=== PATIENT | male | born 1955 | race Caucasian/White ===

== ENCOUNTER 2025-03-03 13:36 | Inpatient (IN) | payer OTHER, SELFPAY ==
[2025-03-03] VITALS (20 sets, daily range): BP systolic 121–155; BP diastolic 62–74; BMI 31.5
--- NOTE | 2025-03-03 08:29 | ED.GENMED ---
History of Present Illness
General
Chief Complaint: Cough
Source: patient
Time Seen by Provider: 03/03/25 08:18
History of Present Illness
History of Present Illness:
70-year-old male with past medical history of hypertension and hyperlipidemia presenting to the emergency department for evaluation of increased fatigue over the last few weeks accompanied with a dry cough and mild exertional dyspnea. Patient
states he is currently visiting family in the area, lives in [place], here visiting for a celebration of life of his twin brothers. Patient does note that this has been causing him some increased stress due to his twin brother's passing. Patient
states that he usually walks 3 miles per day but notes he is having a hard time even going about a half a block without feeling short of breath. He does note that he is currently in the process of being worked up for thrombocytopenia noting that
this was found about 2 years ago and has remained stable but his primary care doctor wanted him to see a instrument processing tech to further evaluate. Social history was noted for 2 glasses of wine a few times per week, patient notes that he has been told he
has a little bit of a fatty liver. Denies any cigarette or tobacco use. No known family history of bleeding or clotting disorders. Also denies any fevers, night sweats or abnormal weight loss.
Past History
Past History
ED Past Medical History: HTN and Hypercholesterolemia
ED Past Surgical History: Appendectomy
Social History
Tobacco: Non-smoker
Alcohol: Occasional
Drug: None
Personal:
Living: with family
Review of Systems
Review of Systems
All Other Systems: ROS reviewed and negative except as documented in HPI and ROS
Phy Exam
Physical Exam
Physical Exam:
GENERAL: Alert , in no apparent distress
EYE: conjunctiva clear
NECK: Supple
ENT: o/p clr, mmm.
CARDIAC: Tachycardic rate, normal rhythm
LUNGS: Clear breath sounds bilaterally, no acute respiratory distress, no wheezes/rales/rhonchi
ABDOMEN: Soft, nontender, nondistended
NEUROLOGICAL: Alert and oriented
SKIN: Warm and dry, skin intact.
MUSCULOSKELETAL: well perfused. No edema
PSYCH: Normal and appropriate interaction.
Scores
Heart Score for Chest Pain Patients
STEMI patient?: Not applicable
Withdrawal Assessment of Alcohol
Withdrawal Assessment Completed?: Not applicable
Course
Orders/Labs/Results
Orders:
Orders
03/03/25 08:27
Electrocardiogram (*1) Urgent
Reason for Study: Shortness of Breath
CT Chest PE Study Urgent
Comment:
Reason For Exam: MANRIQUE, tachy, SOB
EKG- Treatment ONCE
03/03/25 08:49
Complete Blood Count/With Diff Urgent
Comprehensive Metabolic Panel Urgent
Magnesium Urgent
NT-proBNP Urgent
Troponin I Urgent
03/03/25 09:14
Blood Bank Products [* Blood Bank Products] Urgent
Blood Bank Products: *Packed RBC Leuko(PRBC's)
Quantity: 2
Transfuse Today: Yes
Reason: Anemia
03/03/25 09:38
Type+Screen Urgent
03/03/25 09:59
ABO2 Routine
BBK Wristband Number:
Associate notified that ABO2 has been ordered: [id number]
Date: 03/03/25
Time: 09:44
Whiskey Filterer ID: [id number]
Abnormal Lab Results
03/03/25 03/03/25
08:49 09:38
RBC 2.45 L 10^6/uL
(4.70-6.10)
Hgb 5.9 L* g/dL
(13.0-18.0)
Hct 20.4 L* %
(39.0-52.0)
MCH 24.1 L pg
(27.0-31.0)
MCHC 28.9 L g/dL
(33.0-37.0)
RDW 20.3 H %
(11.5-14.5)
MPV 11.1 H fL
(7.4-10.4)
Absolute Monos (auto) 0.7 H 10^3/uL
(0.1-0.6)
Monocytes % 13.9 H %
(1.7-9.3)
Chloride 114 H mmol/L
(98-107)
Creatinine 0.6 L mg/dL
(0.7-1.3)
Glucose 102 H mg/dl
(70-99)
Albumin 3.4 L g/dl
(3.5-5.0)
Crossmatch IS Only See Detail
03/03/25 08:49
03/03/25 08:49
Vital Signs
Initial and Last Documented VS:
Initial Vital Signs
Temp Pulse Resp BP Pulse Ox
98.0 F 107 16 146/72 98
03/03/25 07:29 03/03/25 07:29 03/03/25 07:29 03/03/25 07:29 03/03/25 07:29
Last Documented Vital Signs
Temp Pulse Resp BP Pulse Ox
97.6 F 90 16 134/64 97
03/03/25 12:10 03/03/25 12:15 03/03/25 12:10 03/03/25 12:10 03/03/25 12:15
MDM/Problems Addressed
Differential Diagnosis Includes:
- Valvular Dysfunction
- Cardiomyopathy
- ACS
- PE
- Anemia
- Asthma/COPD
- Pneumonia
- Viral Syndrome
- Malignancy
MDM/Problems Addressed:
70-year-old male presenting to the ER for evaluation of nonproductive cough for the last few weeks, exertional dyspnea and generalized fatigue. History of thrombocytopenia of unclear etiology, was referred to hematology but is yet to see them.
Lives in [place] but currently visiting here after his twin brother's recent passing and does admit to this causing him some increased stress. Noted to be mildly tachycardic here but otherwise hemodynamically stable. Will obtain CT scan of the
chest, labs and EKG. Disposition pending, may need further evaluation with cardiology for echocardiogram and other testing pending ER workup especially given his gradually worsening symptoms and exertional dyspnea
*Radiology
Radiology exam reviewed: radiology read reviewed
*Pulse Oximetry
SaO2: 98
Oxygen Mode of Delivery: Room air
Patient hypoxic: no
*Supervisor Component Assembler Interpretation
Rate: tachycardiac
Heart Rate: 105
Rhythm: sinus
*Critical Care Note
Total Time (30-74mins, 75-104mins- exclusive of procedures): 30
comment:
Critical care statement: A total of 30 minutes of critical care time was provided for this patient. This includes management of unstable vital signs, evaluation of the patient at bedside, reviewing the patient's pertinent medical records, discussion
with consultants, review of old EKGs and review of pertinent medical records. This time with separate from time utilized to perform the aforementioned documented procedures
Comment
Comment:
On patient's labs he has a hemoglobin of 5.9, hematocrit of 20.4, platelets within normal limits at 132. Patient notes no known history of anemia. He has never needed blood transfusion in the past. I did perform a digital rectal exam which showed
light brown stool that is heme-negative. Patient was consented for blood. 2 units packed red blood cells ordered. Will continue to proceed with CTA of the chest given his cough although I do suspect the exertional dyspnea is more likely related
to the anemia. Discussed with patient potential if not likely need for admission for further evaluation.
Patient Management
Discussion with other providers: Hospitalist
Escalation/DeEscalation of care consider admission/obs:
CTA is negative for any pulmonary embolism or masses. Liver cirrhosis noted, unclear as to if this is related to patient's anemia. Given the no clear etiology for patient's anemia as well as likely need for further transfusion will admit for
further evaluation and consultation with specialists as needed. Hospitalist team accepts for continued evaluation and treatment.
ED Attending Note
-
Portions of this chart may have been created with voice recognition software.� Occasional wrong word or��sound alike� substitutions may have occurred due to the inherent limitations of voice recognition software.
Discharge Plan
Departure
Patient Disposition: Admit
Date of Disposition: 03/03/25
Time of Disposition: 10:54
Presentation/result/management discussed w/ accepting MD/DO: Hospitalist
Discharge Problem:
Anemia, Cirrhosis
Prescriptions:
No Action
atorvastatin 20 mg Tablet
20 mg PO HS
eszopiclone 1 mg Tablet
1 mg PO HSPRN PRN (Reason: SLEEP)
Descovy 200-25 mg Tablet
1 tab PO QPM
amlodipine 5 mg tablet
5 mg PO QPM
Theragen Tablet
1 tab PO DAILY
aspirin 81 mg Tablet,Delayed Release (Dr/Ec)
81 mg PO DAILY
Advil PM 200-38 mg Tablet
2 cap PO HSPRN PRN (Reason: SLEEP)
Referrals:
NONE,* [Family Provider, Internal Medicine]
Interventions
Interventions:
*Risk Screen - Suicide Last Done: 03/03/25 07:29
*General Assessment Last Done: 03/03/25 09:22
*Neglect/Abuse Screening Last Done: 03/03/25 07:29
*ED- Fall Risk Assessment Last Done: 03/03/25 09:22
*ED COVID-19 Vaccine History Last Done: 03/03/25 09:22
ED- Pulmonary Assessment Last Done: 03/03/25 09:22
Discharge Date and Time
Print Language: MACANESE
[2025-03-03 09:00] LABS: Hematocrit 20.4 % (39.0-52.0); Hemoglobin 5.9 g/dL (13.0-18.0); Mean Corp Hgb Conc. 28.9 g/dL (33.0-37.0); Mean Corpuscular Volume 83.3 fL (80.0-94.0); Nucleated Red Blood Cells % 0 % (-); Platelet Count 132 10^3/uL (130-400); Red Cell Dist. Width 20.3 % (11.5-14.5)
[2025-03-03 09:09] LABS: ALT (SGPT) 29 U/L (0-50); AST (SGOT) 36 U/L (17-59); Albumin 3.4 g/dl (3.5-5.0); Alkaline Phosphatase 109 U/L (38-126); Blood Urea Nitrogen 9 mg/dl (9-20); Calcium 8.5 mg/dl (8.4-10.2); Carbon Dioxide 22 mmol/L (22-30); Chloride 114 mmol/L (98-107); Estimated Creatinine Clearance 120 ml/min; Glucose 102 mg/dl (70-99); Magnesium 2.0 mg/dl (1.6-2.3); Potassium 3.9 mmol/L (3.5-5.1); Sodium 144 mmol/L (135-145); Total Protein 6.6 g/dl (6.3-8.2); eGFR > 60.00
[2025-03-03 09:20] LABS: Troponin I < 0.012 ng/ml
[2025-03-03 09:36] LABS: Normal RBC Morphology No
[2025-03-03 09:39] LABS: Anisocytosis Slight; Hypochromasia 2+; Polychromasia 1+; Target Cells Slight
--- NOTE | 2025-03-03 12:33 | HPS.HSE ---
Addendum entered and electronically signed by Sarahi Malhotra MD 03/07/25 15:08:
Outpatient home medicines list
Atorvastatin 20 mg p.o. at bedtime
Descovy 200-25 mg p.o. at bedtime
Eszopiclone 1 mg p.o. at bedtime as needed sleep
Aspirin 81 mg p.o. daily
Advil PM 200-38 mg 2 capsules p.o. at bedtime as needed sleep
Theragran multivitamin 1 tablet p.o. daily
Amlodipine 5 mg p.o. every afternoon
Original Note:
Family Physician
-
Family Physician: * NONE
Chief Complaint
-
Cough
History of Present Illness
70-year-old male presented with fatigue, exertional dyspnea and dry cough. He lives in [place] and visiting family in the area usually walks 3 miles a day but has had a hard time now because of shortness of breath. He came in for left celebration
for the 2 twin brothers had he had lost. He admits that he had black stools 2 weeks ago. Denies any dizziness chest pain or abdominal pain. Patient takes Advil PM 3-4 times a week. He also drinks 2 glasses of wine 3-4 times a week
Medical History
Past Medical History
Past Medical History: Reports Other
Additional Past Medical History:
Low platelets for which he needs workup as outpatient, hypertension, hyperlipidemia insomnia
Past Surgical History: Reports Other
Additional Past Surgical History:
Colonoscopy and appendectomy
Social History
Tobacco: Non-smoker
Alcohol: Other (1 to 2 glasses of wine 3-4 nights a week)
Drug: None
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
Family History
Family History: Cancer (Brother of pancreatic cancer other brother of colon cancer another brother with coronary disease)
Allergies / Home Medications
Allergies reflects when Allergies were last updated in [facility].
Home Medications with original date entered in [facility]
Allergy/Medication List:
Part of this note was created using voice recognition system. Occasional wrong word or��sound alike� substitutions may have inadvertently occurred due to the inherent limitations of voice recognition software. If noted kindly bring it to my
attention for correction.
Review of Systems
-
A 12 point ROS was completed and negative except as noted: Yes
Respiratory: Reports Trouble Breathing
Cardiac: Denies Chest Pain, Palpitations or Syncope
Abdomen/GI: Reports Black Stools; Denies Abdominal Pain or Bloody Stools
Physical Exam
Vital Signs
Vital Signs
Temp Pulse Resp BP Pulse Ox
97.6 F 90 16 134/64 97
03/03/25 12:10 03/03/25 12:15 03/03/25 12:10 03/03/25 12:10 03/03/25 12:15
Physical Exam
General: Comfortable and Conversant
Respiratory: Clear
Cardiac: S1/S2 and Regular Rhythm
GI: Soft, Non Tender and Normal Bowel Sounds
Neuro: Nonfocal/grossly intact
Psych: Intact Judgment/Insight
Laboratory Results
-
03/03/25 08:49
03/03/25 08:49
Laboratory Results
Total Bilirubin 1.2 mg/dl (0.2-1.3) 03/03/25 08:49
AST 36 U/L (17-59) 03/03/25 08:49
ALT 29 U/L (0-50) 03/03/25 08:49
Alkaline Phosphatase 109 U/L (38-126) 03/03/25 08:49
Troponin I < 0.012 ng/ml 03/03/25 08:49
Impression/Plan
-
IMPRESSION/PLAN:
CT-no PE. Low lung volumes. Bibasilar atelectatic changes. Trace left pleural effusion. Cirrhosis. Small amount of ascites. Splenomegaly. Large heterogeneous left lobe of thyroid mass. Thoracic spine related to ankylosing spondylitis or DISH
EKG-sinus rhythm with PACs
# Symptomatic anemia with a hemoglobin of 5.9
Type and screen and transfuse 2 units of blood
Stop NSAIDs
Drinks alcohol and cirrhosis noted on CT which patient was not aware about.
Get ultrasound of the abdomen.
GI eval for endoscopy to rule out peptic ulcer disease/varices
PPI drip and octreotide
# Cirrhosis-on CT. Check ultrasound abdomen
# Hyperlipidemia-continue statin
# Hypertension-hold amlodipine
# Large heterogeneous left lobe thyroid mass-USS . check TSH
# Abnormal thoracic spine ankylosing spondylitis/DISH-outpatient follow-up
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
# DVT prophylaxis-SCDs
# CODE STATUS- Full Code
Pt says he doesn't have HIV and takes Descovy for Prep
Part of this note was created using voice recognition system. Occasional wrong word or��sound alike� substitutions may have inadvertently occurred due to the inherent limitations of voice recognition software. If noted kindly bring it to my
attention for correction.
time spent over 75 min
--- NOTE | 2025-03-03 13:48 | EDRN ---
this RN called the receiving unit and notified them that paper report was going to be tubed up
--- NOTE | 2025-03-03 14:43 | CON.GI ---
Addendum entered and electronically signed by Rashad Pastor MD 03/03/25 17:13:
I saw and examined the patient.
The SR SOLUTIONS CONSULTANT or PA's note was reviewed and I agree with the note.
Comment: 70yo male visiting from [place] presents with SOB and cough, found to be profoundly anemic Hgb 5.9. He recall passing black loose stools couple weeks ago for a couple days. Denies abd pain, n/v. CT chest done in ER incidentally found
irregular hepatic capsular contour c/w cirrhosis and splenomegaly. He drinks couple glasses of wine daily but did drink more heavily in his past, up to 6 glasses on heavier nights. He was told he was thrombocytopenic recently and referred to
Hematology. Also told he had fatty liver and elevated LFTs. In ER LFTs normal. He takes Advil PM to sleep several days a week. No prior EGD. He had colonoscopy last year that was normal. His brother passed from CRC.
REC:
Transfuse to bring Hgb up to safe range for EGD tomorrow. DDx includes PUD with NSAID use, varices with cirrhosis on chest CT, portal gastropathy
Check US abdomen to confirm findings of cirrhosis
Keep on BID protonix, and octreotide gtt for now
Check Hep B/C serologies to rule out as etiologies for cirrhosis
Pt agrees to stop EtOH completely and reports he had done this for weeks at a time in the past
I told him he needs to establish care with a roller billet mill/music department chair when he returns to [place]. He is in process of switching to a farmworker turkey farm physician and will do so upon return
Original Note:
Consultation
-
Date/Time Consultation Requested: 03/03/25 1300
Date/Time Consultation Performed: 03/03/25 1440
Requesting Provider: Dr. Malhotra
Performing Provider: Dr. King/JORGE ALBERTO Childress
Reason for Consultation: anemia, recent melena, cirrhosis on imaging
Medical History
Chief Complaint / HPI
Chief Complaint: cough
History of Present Illness:
70-year-old male with past medical history of hypertension and hyperlipidemia presents to the emergency room with fatigue over the last couple weeks associated with cough and dyspnea on exertion. The patient states that he is felt very fatigued
especially over the past 2 weeks. He was found to have a hemoglobin of 5.9, platelets 132. CT of chest showed cirrhosis on imaging. We are asked to evaluate for the same. The patient states that he lives in [place] full-time. He is up-to-date
on colonoscopy as his brother from colon cancer. He had his last colonoscopy 1 year ago. He states that this was 'normal'. He did have his yearly physical with routine labs performed the first week in January. He states that his primary
told him that his platelets were 'a little low'. However they were the same numbers for the past 2 years and asked him to see hematology. He is going to see hematology next month. He does drink approximately 2 to 3 glasses of wine a day. In the
past he would drink more at least 4 glasses of wine daily he does not have a prior history of cirrhosis that he was aware of. He is currently here visiting family. He does state that approximately 10 days ago he had black stool for 4 days. He
states that he was having a little bit of fatigue prior to this however became more pronounced. He does take aspirin 81 mg daily. He has been taking 'Advil PM' 2 pills at least 3-4 times a week for the past 9 months for sleep. He denies any
fevers, chills, nausea, vomiting, hematochezia, dysphagia or odynophagia. No early satiety or unintentional weight loss. At the time of his melena he was not having any indigestion heartburn or abdominal discomfort. He states that his bowel
movements went back to normal. In the emergency room he had light brown stool that was OB negative. Patient's medications were reviewed. Patient is on Descovy for PrEP.
Past Medical History
Past Medical History: Other (Hypertension, hyperlipidemia)
Past Surgical History: Appendectomy
Social History
Tobacco: Non-Smoker
Alcohol: Daily (2 to 4 glasses of wine daily)
Drug: None
Personal: Single
Living: Alone
Family History
Family History: Other (Brother with history of colon cancer, denies any family history of IBD)
Allergies / Home Medications
Allergy/AdvReac Type Severity Reaction Status Date / Time
KRISTOPHER Inhibitors Allergy Intermediate Swelling Verified 03/03/25 07:31
�Medication �Instructions �Recorded
amlodipine 5 mg tablet 5 mg PO QPM Blood Pressure 03/03/25
aspirin 81 mg tablet,delayed 81 mg PO DAILY 03/03/25
release
atorvastatin 20 mg tablet 20 mg PO HS High Cholesterol 03/03/25
emtricitabine 200 mg-tenofovir 1 tab PO QPM 03/03/25
alafenamide fumarate 25 mg tablet
(Descovy)
eszopiclone 1 mg tablet 1 mg PO HSPRN PRN SLEEP 03/03/25
ibuprofen-diphenhydramine citrate 2 cap PO HSPRN PRN SLEEP 03/03/25
200 mg-38 mg tablet (Advil PM)
therapeutic multivitamin 1 tab PO DAILY 03/03/25
Review of Systems
-
All other systems: A 12 pt ROS was Negative except as stated above in HPI
Vital Signs
Temp Pulse Resp BP Pulse Ox
98.1 F 108 18 144/69 96
03/03/25 14:23 03/03/25 14:23 03/03/25 14:23 03/03/25 14:23 03/03/25 14:23
Physical Exam
Exam
General: No Apparent Distress
HEENT: Anicteric
Respiratory: Clear
Cardiac: Regular Rhythm
GI: Soft, Non Tender, Non Distended and Normal Bowel Sounds
Rectal: Hem Negative (Light brown OB negative stool per ER)
Musculoskeletal: No Edema
Skin: Warm and Dry
Neuro: AO x 3
Psych: Calm
Results
WBC 4.8 10^3/uL (4.8-10.8) 03/03/25 08:49
Hgb 5.9 g/dL (13.0-18.0) L* 03/03/25 08:49
Hct 20.4 % (39.0-52.0) L* 03/03/25 08:49
MCV 83.3 fL (80.0-94.0) 03/03/25 08:49
Plt Count 132 10^3/uL (130-400) 03/03/25 08:49
Absolute Neuts (auto) 2.7 10^3/uL (1.4-6.5) 03/03/25 08:49
Sodium 144 mmol/L (135-145) 03/03/25 08:49
Potassium 3.9 mmol/L (3.5-5.1) 03/03/25 08:49
Chloride 114 mmol/L (98-107) H 03/03/25 08:49
Carbon Dioxide 22 mmol/L (22-30) 03/03/25 08:49
BUN 9 mg/dl (9-20) 03/03/25 08:49
Creatinine 0.6 mg/dL (0.7-1.3) L 03/03/25 08:49
Calcium 8.5 mg/dl (8.4-10.2) 03/03/25 08:49
Total Bilirubin 1.2 mg/dl (0.2-1.3) 03/03/25 08:49
AST 36 U/L (17-59) 03/03/25 08:49
ALT 29 U/L (0-50) 03/03/25 08:49
Alkaline Phosphatase 109 U/L (38-126) 03/03/25 08:49
Diagnostic Image Results:
CT chest/PE study:
IMPRESSION:
1. Examination limited as above. No central pulmonary embolus.
2. Low lung volumes. Bibasilar atelectatic changes. Trace left pleural effusion.
3. Cirrhosis. Small amount of ascites. Splenomegaly which may be related to portal hypertension.
4. Large heterogeneous left lobe thyroid mass as above, incompletely imaged on this exam.
5. Thoracic spine findings related to ankylosing spondylitis or diffuse idiopathic skeletal hyperostosis.
Prior GI Procedures:
EGD: Never had
Colonoscopy: Per patient had colonoscopy 1 year ago in [place]. States it was 'normal'. Patient had this earlier as brother was diagnosed with colon cancer.
Colonoscopy 06/22/2017: - One 3 mm polyp in the rectum. Biopsied.
- Non-bleeding external hemorrhoids.
- The examined portion of the ileum was normal. Repeat colonoscopy 10 years.
Assessment / Plan
-
70-year-old male with past medical history of hypertension and hyperlipidemia presents to the emergency room with fatigue over the last couple weeks associated with cough and dyspnea on exertion. The patient states that he is felt very fatigued
especially over the past 2 weeks. He was found to have a hemoglobin of 5.9, platelets 132. CT of chest showed cirrhosis on imaging. We are asked to evaluate for the same. Patient was given 1 unit of packed red blood cells with hemoglobin coming
up to 6.2. Taking aspirin 81 mg daily. Advil PM (2 pills) 3 times a week for the past 9 months. Recent episodes of melena approximately 10 days ago that lasted 4 days. Currently stool light brown OB negative. Patient reports that his platelets
were the only thing that were abnormal on his recent labs the first week in January patient currently visiting family. He is from [place]. Not set to return to [place] until March [address].
Impression:
Symptomatic anemia hemoglobin 5.9
New diagnosis of cirrhosis
Recent episodes of melena approximately 10 days ago
Chronic use of NSAIDs (aspirin 81 mg daily as well as Advil 400 mg 3 times a week for 9 months)
Chronic alcohol, at least 2 glasses of wine daily
Thyroid mass
Plan:
- Transfuse as ordered to keep hemoglobin greater than 7
- Ultrasound abdomen ordered
- Continue pantoprazole, can change to 40 mg IV twice daily
- Patient placed on octreotide empirically
- Clear liquid diet, n.p.o. after midnight for possible EGD as long as labs stable.
- Further recommendations to be forthcoming
-
-
Thank you for consultation and allowing me to participate in the patient's care. Please call the iron launder operator GI physician during the after hours with any questions or concerns.
[2025-03-03 14:56] LABS: Hematocrit 20.5 % (39.0-52.0); Hemoglobin 6.2 g/dL (13.0-18.0)
[2025-03-03] MEDS: PROTONIX 100 IV (15:17)
--- NOTE | 2025-03-03 15:40 | PTCARENOTE ---
pt presented from ED via stretcher. pt is AAO*3, Vss, room air. denies any pain at this time. pt with 2nd unit of blood infusing at this time. pt is oriented to the room, call stanton within the reach. plan of care ongoing.
[2025-03-03] MEDS: SANDOSTATIN 500.6 MCG IV (16:16)
[2025-03-03] MEDS: THIAMINE INJECTION 200 MG IV (16:46)
[2025-03-03 17:11] LABS: Vitamin B12 860 pg/ml (239-931)
[2025-03-03] MEDS: D5/0.45%NACL 1000 IV (17:31)
[2025-03-03] MEDS: NSS (PRESERVATIVE FREE) 10 ML IV (19:52)
[2025-03-03] MEDS: PROTONIX IV 40 MG IV (19:52)
[2025-03-03] MEDS: LIPITOR 20 MG PO (20:04)
[2025-03-03 20:43] LABS: Hematocrit 21.9 % (39.0-52.0); Hemoglobin 6.8 g/dL (13.0-18.0)
[2025-03-04] VITALS (9 sets, daily range): BP systolic 21–141; BP diastolic 65–82; PULSE 95–100
[2025-03-04 03:01] LABS: Hematocrit 25.3 % (39.0-52.0); Hemoglobin 8.2 g/dL (13.0-18.0)
[2025-03-04] MEDS: SANDOSTATIN 500.6 MCG IV (04:50)
[2025-03-04 08:10] LABS: ALT (SGPT) 31 U/L (0-50); AST (SGOT) 54 U/L (17-59); Albumin 3.3 g/dl (3.5-5.0); Alkaline Phosphatase 100 U/L (38-126); Blood Urea Nitrogen 7 mg/dl (9-20); Calcium 7.8 mg/dl (8.4-10.2); Carbon Dioxide 18 mmol/L (22-30); Chloride 114 mmol/L (98-107); Estimated Creatinine Clearance > 125 ml/min; Glucose 137 mg/dl (70-99); Potassium 4.6 mmol/L (3.5-5.1); Sodium 139 mmol/L (135-145); Total Protein 6.4 g/dl (6.3-8.2); eGFR > 60.00
[2025-03-04 08:14] LABS: INR 1.50; PT 18.4 Sec (11.4-14.6)
[2025-03-04] MEDS: NSS (PRESERVATIVE FREE) 10 ML IV (09:10)
[2025-03-04] MEDS: PROTONIX IV 40 MG IV (09:10)
[2025-03-04] MEDS: THIAMINE INJECTION 200 MG IV (09:10)
[2025-03-04] MEDS: THERAGRAN 1 TABLET PO (09:11)
[2025-03-04 09:44] LABS: Vitamin D, 25-OH*** 13.2 ng/mL (30-80)
[2025-03-04 10:14] LABS: Hematocrit 26.0 % (39.0-52.0); Hemoglobin 8.3 g/dL (13.0-18.0); Mean Corp Hgb Conc. 31.9 g/dL (33.0-37.0); Mean Corpuscular Volume 80.0 fL (80.0-94.0); Platelet Count 117 10^3/uL (130-400); Red Cell Dist. Width 20.8 % (11.5-14.5)
[2025-03-04 10:18] LABS: Hepatitis B Surface Antigen Negative (Negative)
[2025-03-04 10:37] LABS: Hepatitis C Antibody Negative (Negative)
--- NOTE | 2025-03-04 12:57 | W.PN.GI.CBS2 ---
Today's Communication / Plan
-
PPI bid x 8 weeks
Assessment / Plan
-
EGD:
erosive gastritis from nsaids no stigmata of active bleeding
small varices not bleeding
plan:
PPI bid x8 weeks
stop octreotide
avoid nsaids
alcohol abstinence
will sign off call with questions
Subjective
Subjective
Date of Service: March 04, 2025
no pain
Objective
Data Reviewed
Laboratory Data:
Laboratory Results
03/04/25 09:11
03/04/25 06:42
Laboratory Results
PT 18.4 Sec (11.4-14.6) H 03/04/25 06:42
INR 1.50 03/04/25 06:42
Magnesium 2.0 mg/dl (1.6-2.3) 03/03/25 08:49
Total Bilirubin 3.2 mg/dl (0.2-1.3) H D 03/04/25 06:42
AST 54 U/L (17-59) 03/04/25 06:42
ALT 31 U/L (0-50) 03/04/25 06:42
Alkaline Phosphatase 100 U/L (38-126) 03/04/25 06:42
Vital Signs and I&O:
Vital Signs
Temp Pulse Resp BP Pulse Ox
98.9 F 95 16 128/67 93
03/04/25 11:20 03/04/25 11:20 03/04/25 11:20 03/04/25 11:20 03/04/25 11:20
I&O
03/03/25 03/04/25 03/05/25
06:59 06:59 06:59
Intake Total 1230 / 1230
Output Total 1500 / 1500
Balance -270 / -270
[2025-03-04] MEDS: D5/0.45%NACL 1000 IV (13:55)
--- NOTE | 2025-03-04 14:52 | W.PN.HOSP.TC ---
Addendum entered and electronically signed by Sarahi Malhotra MD 03/04/25 17:03:
Dictation- [id number]
Original Note:
Today's Communication/Plan
-
Discharge
Assessment / Plan
Assessment / Plan
CT-no PE. Low lung volumes. Bibasilar atelectatic changes. Trace left pleural effusion. Cirrhosis. Small amount of ascites. Splenomegaly. Large heterogeneous left lobe of thyroid mass. Thoracic spine related to ankylosing spondylitis or DISH
EKG-sinus rhythm with PACs
Ultrasound of the thyroid-multiple bilateral thyroid nodules. Largest 3 in the left lobe
Ultrasound of the abdomen-suggestive of hepatic cirrhosis. Hypoechoic lesion in the left hepatic lobe 1.6 cm may be a cyst. Given history of cirrhosis correlate with AFP levels. Diffuse peritoneal ascites. Mild splenic enlargement.
# Symptomatic anemia with a hemoglobin of 5.9
Status post 3 units of packed red blood cells
EGD showed erosive gastritis from the NSAIDs. Small varices not bleeding.
Continue PPI for 8 weeks.
Stop octreotide
Stop NSAIDs
Stop Alcohol Completely
He needs to establish care with a pensions retirement plan specialist or a instructor flying-discussed with patient and at bedside
# Cirrhosis-on CT.
USS as above
Hepatitis B antigen and hepatitis B antibody negative
Discussed about getting AFP done and also get to [place]
# Hyperlipidemia-continue statin
# Hypertension-hold amlodipine. Start BB which should help liver also
# Large heterogeneous left lobe thyroid mass-ultrasound as above. Needs FNA as outpatient. Patient and aware. Pt has no stridor. Discussed that if he ever develops stridor or shortness of breath to seek medical attention
# Chronic thrombocytopenia-patient is supposed to see installer apprentice as outpatient when he gets back to [place]
# Vitamin D deficiency-replace
# Abnormal thoracic spine ankylosing spondylitis/DISH-outpatient follow-up
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
# DVT prophylaxis-SCDs
# CODE STATUS- Full Code
D/W GI
D/W Radiology re USS
Discussed with at bedside
Discussed with nursing
All follow-up care discussed with the patient and . They are aware that he needs to establish care they prefer to get blood work done and also biopsy done in [place] when they get back. He is supposed to start his care with Dr. Garcia [phone]
[phone]
I have given him printouts for ultrasound of the thyroid, lab work, ultrasound of the abdomen, CAT scan and endoscopy.
Also encouraged to sign release form from medical records so PCP can request records.
Diet advanced, ambulate the patient and as long as he feels stable we can discharge him.
More than 30 minutes spent in discharge including
Final examination of the patient
Summarizing hospital stay
Instructions for continuing care to all relevant caregivers
Preparation of discharge records, prescriptions, and referral forms
Total time spent (in minutes): 39 min
Anticipated Discharge: Today
Subjective/Interval History
-
Date of Service: March 04, 2025
Objective Data
-
Labs:
Laboratory Results
03/04/25 03/04/25 03/04/25
02:45 06:42 08:14
WBC Cancelled
Hgb 8.2 L D Cancelled Cancelled
Hct 25.3 L Cancelled Cancelled
Plt Count Cancelled
PT 18.4 H
INR 1.50
Sodium 139
Potassium 4.6
Chloride 114 H
Carbon Dioxide 18 L
BUN 7 L
Creatinine 0.6 L
Glucose 137 H
Calcium 7.8 L
Total Bilirubin 3.2 H D
AST 54
ALT 31
Alkaline Phosphatase 100
03/04/25
09:11
WBC 4.9
Hgb 8.3 L
Hct 26.0 L
Plt Count 117 L
PT
INR
Sodium
Potassium
Chloride
Carbon Dioxide
BUN
Creatinine
Glucose
Calcium
Total Bilirubin
AST
ALT
Alkaline Phosphatase
Vital Signs:
Vital Signs
Temp Pulse Resp BP Pulse Ox
99.0 F 94 18 141/79 94
03/04/25 13:48 03/04/25 13:48 03/04/25 13:48 03/04/25 13:48 03/04/25 13:48
I&O
03/03/25 03/04/25 03/05/25
06:59 06:59 06:59
Intake Total 1230 / 1230
Output Total 1500 / 1500
Balance -270 / -270
[2025-03-04] MEDS: DRISDOL (VITAMIN D2) 50000 UNITS PO (15:50)
[2025-03-04] MEDS: CORGARD 20 MG PO (15:50)
--- NOTE | 2025-03-04 17:18 | W.DS.TRANS ---
DC Summary - [employer]
-
Discharge Instructions:
Discharge Diagnosis/Procedures Symptomatic Anemia
GI Bleed-gastritis
Cirrhosis
Hepatic cyst
Thrombocytopenia
Hypertension
High cholesterol
Large heterogeneous left thyroid with multiple
nodules
Vitamin D deficiency
Abnormal thoracic spine-ankylosing spondylitis/
DISH
Blood Work Alpha Feto Protein levels for liver, CBC and CMP
2 weeks
Instructions:
Stand-Alone Forms:
Changes to Home Medications: Yes
Discharge Medications:
DC Medications w/original date entered in [facility] [facility]
atorvastatin 20 mg tablet 20 mg PO HS High Cholesterol 03/03/25
emtricitabine 200 mg-tenofovir alafenamide fumarate 25 mg tablet (Descovy) 1 tab PO QPM Infection 03/03/25
eszopiclone 1 mg tablet 1 mg PO HSPRN PRN SLEEP 03/03/25
therapeutic multivitamin 1 tab PO DAILY Supplement 03/03/25
cholecalciferol (vitamin D3) 50 mcg (2,000 unit) tablet 50 mcg PO DAILY def #30 tabs 03/04/25
nadolol 20 mg tablet 20 mg PO DAILY Blood pressure #30 tabs 03/04/25
pantoprazole 40 mg tablet,delayed release (Protonix) 40 mg PO BID Gastrointestinal issue #120 tabs 03/04/25
thiamine HCl (vitamin B1) 100 mg capsule 100 mg PO DAILY Supplement #20 caps 03/04/25
Home Medication Changes
Thiamine, Protonix, nadolol, vitamin D are new
Stopped amlodipine, Advil PM, aspirin
Pending Results: Yes (Biopsy)
--- NOTE | 2025-03-05 09:52 | CM ---
Addendum late entry.
Alert awake oriented patient who lives with friend Emmy who lives in a 2 story home with 3 step to enter and bed and bathroom first floor. He is independent in driving and in all activities of daily living.He was offered VN he declined need.He
drove him self home.
No VN hx / No SNF history
Pharmacy [facility]
PCP DR Montague
PLAN Home Declined VN
== END 2025-03-04 18:50 | disposition home or self-care (01) | DRG 392 ==
LOC: 4 EAST ACU 13:36
PROVIDERS: Internal Medicine; Nurse Practitioner; Physician Assistant Medical; ADMITTING PHYSICIAN Hospitalist; CONSULT PHYSICIAN Internal Medicine; EMERGENCY PHYSICIAN Emergency Medicine
PROC: 0DB68ZX Excision of Stomach, Via Natural or Artificial Opening Endoscopic, Diagnostic (ICD-10-PCS; 2025-03-04)
PROC: 0DB98ZX Excision of Duodenum, Via Natural or Artificial Opening Endoscopic, Diagnostic (ICD-10-PCS; 2025-03-04)
DX: K29.60 Other gastritis without bleeding (principal); D68.32 Hemorrhagic disorder due to extrinsic circulating anticoagulants; I85.10 Secondary esophageal varices without bleeding; K92.1 Melena; D64.9 Anemia, unspecified; K74.60 Unspecified cirrhosis of liver; D69.6 Thrombocytopenia, unspecified; I10 Essential (primary) hypertension; E55.9 Vitamin D deficiency, unspecified
CPT/HCPCS: 71275; 76536; 76700; 80053; 82248; 82306; 82607; 83735; 83880; 84443; 84484; 85014; 85018; 85025; 85027; 85610; 86704; 86706; 86803; 86850; 86900; 86901; 86920; 87340; 88305; 88342; 93005; 99291; P9016; Q9967